=== PATIENT | male | born 1990 | race Two or more races ===

== ENCOUNTER 2022-05-05 09:34 | Emergency (ER) | payer OTHER ==
[~2022-05-05] VITALS: Ht 172.7 cm; Wt 91.2 kg
--- NOTE | 2022-05-05 10:05 | NUR ---
LEFT KNEE STARTED HURTING 3 DAYS AGO,DENIES ANY TRAUMA
--- NOTE | 2022-05-05 10:15 | NUR ---
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
[2022-05-05] MEDS ORDERED: IBUPROFEN 600 MG TABLET PO ONE (11:00)
[2022-05-05] MEDS ORDERED: IBUPROFEN 600 MG TABLET ONE (11:00)
[2022-05-05] MEDS ORDERED: IBUP-1953 PO (11:37)
[2022-05-05 12:57] VITALS: BP 121/86
--- NOTE | 2022-05-05 12:57 | NUR ---
Patient discharged to home in stable condition. Written and verbal after care instructions given. Patient verbalizes understanding of instruction.
== END 2022-05-05 12:57 | disposition home or self-care (01) ==
LOC: ER 09:47
DX: M25.562 Pain in left knee (principal); Z90.49 Acquired absence of other specified parts of digestive tract; Z60.2 Problems related to living alone; Z90.89 Acquired absence of other organs
CPT/HCPCS: 73564-TC

== ENCOUNTER 2022-07-10 21:03 | Emergency (ER) | payer OTHER ==
[~2022-07-10] VITALS: Ht 172.7 cm; Wt 93.0 kg
[~2022-07-10 21:03] MED LIST: IBUP-1953 PO
[2022-07-10 22:28] VITALS: BP 116/74
[2022-07-10] MEDS ORDERED: CYCL5TAB PO (22:45)
[2022-07-10] MEDS ORDERED: NAPR-1164 PO (22:45)
[2022-07-10] MEDS ORDERED: CYCLOBENZAPRINE 10 MG TABLET ONE (22:48)
[2022-07-10] MEDS ORDERED: KETOROLAC TROMETHAMINE INJ 30 MG/ML VIAL ONE (22:48)
[2022-07-10] MEDS ORDERED: CYCLOBENZAPRINE 10 MG TABLET PO ONE (23:00)
[2022-07-10] MEDS ORDERED: KETOROLAC TROMETHAMINE INJ 60 MG/2 ML VIAL IM ONE (23:00)
== END 2022-07-10 22:55 | disposition home or self-care (01) ==
LOC: ER 21:08
DX: M79.605 Pain in left leg (principal); Z90.49 Acquired absence of other specified parts of digestive tract; Z60.2 Problems related to living alone
CPT/HCPCS: 99283; 96372; J1885